=== PATIENT | female | born 1975 | race African-American/Black ===

== ENCOUNTER 2023-10-10 15:50 | Inpatient (IN) | payer MEDICAID ==
[~2023-10-10] VITALS: Ht 157.5 cm; Wt 61.7 kg
[2023-10-10 16:39] LABS: BASOPHILS % 1.7 % (0.0-2.0); EOSINOPHILS % 1.3 % (0.0-5.0); HEMATOCRIT. 22.7 % (36.0-48.0); LYMPHOCYTES % 40.9 % (20.0-50.0); MEAN CORPUSCULAR HEMOGLOBIN 17.7 pg (28.0-32.0); MEAN CORPUSCULAR HGB CONC 29.3 g/dL (31.0-37.0); MEAN CORPUSCULAR VOLUME 60.5 fL (81.0-99.0); MEAN PLATELET VOLUME 8.2 fl (7.4-10.4); MONOCYTES % 8.8 % (2.0-8.0); NEUTROPHILS % 47.3 % (40.0-76.0); PLATELET 310 x1000/uL (130-400); RED BLOOD CELL COUNT 3.75 mill/uL (4.2-5.4); RED CELL DISTRIBUTION WIDTH 20.6 % (11.6-14.6); WHITE BLOOD COUNT 4.7 x1000/uL (4.5-11.0)
[2023-10-10 16:42] LABS: CARBON DIOXIDE 23 mEq/L (21-32); CHLORIDE 108 mEq/L (98-107); POTASSIUM 3.3 mEq/L (3.5-5.1); SODIUM 141 mEq/L (136-145)
[2023-10-10 16:43] LABS: CALCIUM 8.7 mg/dL (8.7-10.4)
[2023-10-10 16:48] LABS: CREATININE 0.7 mg/dL (0.6-1.0); ETHANOL BLOOD 100 mg/dL (<10); GLUCOSE 82 mg/dL (70-105); UREA NITROGEN BLOOD 9 mg/dL (9-23)
[2023-10-10 16:52] LABS: ADD RBC MORPHOLOGY YES; DIFFERENTIAL COMMENT 1; HEMOGLOBIN. 6.6 g/dL (12.0-16.0)
[2023-10-10 16:54] LABS: CARBAMAZEPINE < 0.4 ug/mL (4-12); PHENOBARBITAL < 3.0 ug/mL (15.0-40.0); PHENYTOIN < 2.0 ug/mL (10-20)
[2023-10-10 16:55] LABS: VALPROIC ACID < 3.0 ug/mL (50-100)
[2023-10-10 17:35] LABS: HYPOCHROMASIA 2+; MICROCYTOSIS 3+; PLATELET ESTIMATE NORMAL; TARGET CELLS 1+
[2023-10-10] MEDS: LORAZEPAM 2MG/ML INJ IV ONE (20:20)
[2023-10-10] MEDS ORDERED: LORAZEPAM 2MG/ML INJ IV PRN ×2 (20:30→22:00)
[2023-10-10] MEDS ORDERED: GUAIFENESIN 200MG/10ML SUGAR FREE UDC PO PRN (20:30)
[2023-10-10] MEDS ORDERED: IPRATROPIUM/ALBUTEROL 0.5-3(2.5)MG/3ML NEB HHN PRN (20:30)
[2023-10-10] MEDS ORDERED: ACETAMINOPHEN 325MG TABLET PO PRN (20:30)
[2023-10-10] MEDS ORDERED: ONDANSETRON HCL 4MG/2ML INJ IV PRN (20:30)
[2023-10-10] MEDS ORDERED: DOCUSATE SODIUM 100MG CAPSULE PO PRN (20:30)
[2023-10-10] MEDS ORDERED: CLONIDINE 0.1MG TABLET PO PRN (20:30)
[2023-10-10] MEDS ORDERED: LEVETIRACETAM 500MG PREMIX 100 ML IV SCH (21:00)
[2023-10-10 21:30] VITALS: BP 125/75; PULSE 105; RESP 19; TEMP 97.5
[2023-10-10] MEDS: LEVETIRACETAM 500MG TABLET PO SCH (22:28)
[2023-10-10] MEDS: CHLORDIAZEPOXIDE 25MG CAPSULE PO SCH (22:28)
[2023-10-10] MEDS: POTASSIUM CHLORIDE 20MEQ/PACKET PO NR (22:28)
[2023-10-10 22:35] LABS: CLARITY URINE TURBID (CLEAR); COLOR URINE RED (YELLOW); GLUCOSE URINE NEGATIVE (NEGATIVE); KETONES URINE NEGATIVE (NEGATIVE); LEUKOCYTE ESTERASE URINE 2+ (NEGATIVE); NITRITE URINE POSITIVE (NEGATIVE); OCCULT BLOOD URINE 2+ (NEGATIVE); PROTEIN URINE 2+ (NEGATIVE); SPECIFIC GRAVITY URINE 1.029 (1.005-1.030)
[2023-10-10 22:42] LABS: *AMPHETAMINES SCREEN URINE NEGATIVE (NEGATIVE); *BARBITURATES SCREEN URINE NEGATIVE (NEGATIVE); *BENZODIAZEPINES SCREEN URINE PRESUMPTIVE POSITIVE (NEGATIVE); *COCAINE SCREEN URINE PRESUMPTIVE POSITIVE (NEGATIVE); CANNABINOID URINE SCREEN PRESUMPTIVE POSITIVE (NEGATIVE); ECSTASY MDMA SCREEN URINE NEGATIVE (NEGATIVE); METHADONE URINE SCREEN NEGATIVE (NEGATIVE); OPIATES URINE SCREEN NEGATIVE (NEGATIVE); PHENCYCLIDINE URINE SCREEN NEGATIVE (NEGATIVE)
[2023-10-10 22:48] LABS: BACTERIA URINE 2+; RBC URINE TNTC /hpf (0-2); SQUAMOUS EPITHELIAL CELL URINE 1+ /lpf (RARE/1+)
[2023-10-11 04:00] VITALS: BP 112/65; PULSE 75; RESP 19; TEMP 97.5
[2023-10-11 08:00] VITALS: BP 115/77; PULSE 81; RESP 18; TEMP 97.4
[2023-10-11] MEDS: CEFTRIAXONE 1GM/50ML 50 ML IV SCH (09:23)
[2023-10-11 09:40] LABS: CHLORIDE 108 mEq/L (98-107); POTASSIUM 3.6 mEq/L (3.5-5.1); SODIUM 139 mEq/L (136-145)
[2023-10-11 09:41] LABS: CALCIUM 8.7 mg/dL (8.7-10.4); CARBON DIOXIDE 24 mEq/L (21-32)
[2023-10-11 09:46] LABS: BASOPHILS % 1.3 % (0.0-2.0); CREATININE 0.6 mg/dL (0.6-1.0); EOSINOPHILS % 1.8 % (0.0-5.0); GLUCOSE 103 mg/dL (70-105); HEMATOCRIT. 24.2 % (36.0-48.0); HEMOGLOBIN. 7.1 g/dL (12.0-16.0); LYMPHOCYTES % 31.8 % (20.0-50.0); MEAN CORPUSCULAR HEMOGLOBIN 17.8 pg (28.0-32.0); MEAN CORPUSCULAR HGB CONC 29.5 g/dL (31.0-37.0); MEAN CORPUSCULAR VOLUME 60.2 fL (81.0-99.0); MEAN PLATELET VOLUME 8.6 fl (7.4-10.4); MONOCYTES % 8.4 % (2.0-8.0); NEUTROPHILS % 56.7 % (40.0-76.0); PLATELET 344 x1000/uL (130-400); RED BLOOD CELL COUNT 4.02 mill/uL (4.2-5.4); RED CELL DISTRIBUTION WIDTH 21.1 % (11.6-14.6); TRIGLYCERIDE 79 mg/dL (0-150); UREA NITROGEN BLOOD 8 mg/dL (9-23)
[2023-10-11 09:47] LABS: LDL CHOLESTEROL 67 mg/dL (5-100)
[2023-10-11 09:48] LABS: CHOLESTEROL 158 mg/dL (<200); CREATINE KINASE 193 IU/L (34-145); HDL CHOLESTEROL 80 mg/dL (>65); T4 FREE 0.82 ng/dL (0.89-1.76)
[2023-10-11 09:49] LABS: DIFFERENTIAL COMMENT 1
[2023-10-11 09:50] LABS: ADD RBC MORPHOLOGY NO; THYROID STIMULATING HORMONE 0.43 uIU/mL (0.55-4.78)
[2023-10-11 12:00] VITALS: BP 124/74; PULSE 71; RESP 20; TEMP 98.8
[2023-10-11] MEDS: IRON SUCROSE COMPLEX 100 MG/5 ML ML IV SCH (13:20)
[2023-10-11 16:00] VITALS: BP 104/68; PULSE 76; RESP 20; TEMP 98.5
[2023-10-11 17:48] LABS: HEMATOCRIT 27.2 % (36.0-48.0); HEMOGLOBIN 7.8 g/dL (12.0-16.0); MEAN CORPUSCULAR HEMOGLOBIN 17.5 pg (28.0-32.0); MEAN CORPUSCULAR HGB CONC 28.7 g/dL (31.0-37.0); MEAN CORPUSCULAR VOLUME 60.9 fL (81.0-99.0); PLATELET 425 x1000/uL (130-400); RED BLOOD CELL COUNT 4.47 mill/uL (4.2-5.4); RED CELL DISTRIBUTION WIDTH 21.2 % (11.6-14.6); WHITE BLOOD COUNT 5.5 x1000/uL (4.5-11.0)
[2023-10-11 17:50] LABS: INR 0.9; PROTHROMBIN TIME 10.3 sec (9.6-11.0)
[2023-10-11 17:52] LABS: TROPONIN I HIGH SENSITIVITY 14 ng/L (3.0-34)
[2023-10-11 17:53] LABS: AMMONIA 93 uMol/L (<32); CREATINE KINASE 180 IU/L (34-145)
[2023-10-11 20:00] VITALS: BP 126/63; PULSE 76; RESP 19; TEMP 97.5
[2023-10-12] VITALS: BP 119/71; PULSE 92; RESP 19; TEMP 97.1
[2023-10-12 04:00] VITALS: BP 118/66; PULSE 89; RESP 19; TEMP 97.5
[2023-10-12 08:00] VITALS: BP 108/73; PULSE 80; RESP 20; TEMP 97.8
[2023-10-12 10:23] LABS: HEMATOCRIT 25.1 % (36.0-48.0); HEMOGLOBIN 7.3 g/dL (12.0-16.0); MEAN CORPUSCULAR HEMOGLOBIN 17.7 pg (28.0-32.0); MEAN CORPUSCULAR HGB CONC 29.3 g/dL (31.0-37.0); MEAN CORPUSCULAR VOLUME 60.4 fL (81.0-99.0); PLATELET 415 x1000/uL (130-400); RED BLOOD CELL COUNT 4.15 mill/uL (4.2-5.4); RED CELL DISTRIBUTION WIDTH 21.3 % (11.6-14.6); WHITE BLOOD COUNT 5.9 x1000/uL (4.5-11.0)
[2023-10-12 10:26] LABS: CALCIUM 8.9 mg/dL (8.7-10.4); CARBON DIOXIDE 24 mEq/L (21-32); CHLORIDE 108 mEq/L (98-107); POTASSIUM 4.1 mEq/L (3.5-5.1); SODIUM 138 mEq/L (136-145)
[2023-10-12 10:29] LABS: CREATININE 0.7 mg/dL (0.6-1.0); GLUCOSE 92 mg/dL (70-105); UREA NITROGEN BLOOD 8 mg/dL (9-23)
[2023-10-12 11:18] VITALS: BP 108/73; PULSE 80; TEMP 97.8; O2SAT 98
[2023-10-12 12:00] VITALS: BP 102/50; PULSE 83; RESP 20; TEMP 98.9
== END 2023-10-12 12:30 | disposition home or self-care (01) | DRG 812 ==
LOC: ER 15:50 → EDBEDREQ 19:37 → EDBEDREQTM 19:37 → EDBD 21:23 → 7WST 21:23
PROVIDERS: ADMIT Internal Medicine; ATTEND Internal Medicine
DX: T50.911A Poisoning by multiple unspecified drugs, medicaments and biological substances, accidental (unintentional), initial encounter (principal); G92.8 Other toxic encephalopathy; E78.5 Hyperlipidemia, unspecified; F10.129 Alcohol abuse with intoxication, unspecified; D50.9 Iron deficiency anemia, unspecified; E87.6 Hypokalemia; T40.5X1A Poisoning by cocaine, accidental (unintentional), initial encounter; R56.9 Unspecified convulsions; F14.90 Cocaine use, unspecified, uncomplicated; N39.0 Urinary tract infection, site not specified; Y90.5 Blood alcohol level of 100-119 mg/100 ml; Z59.01 Sheltered homelessness; Z79.899 Other long term (current) drug therapy; Z88.1 Allergy status to other antibiotic agents
CPT/HCPCS: 36415; 80048; 80061; 80156; 80165; 80184; 80185; 80305; 80320; 81003; 82140; 82550; 83735; 84439; 84443; 84484; 85025; 85027; 86850; 86870; 86900; 99291; C1893; J0696; J2060; G0480

== ENCOUNTER 2024-04-16 12:38 | Inpatient (IN) | payer MEDICAID ==
[~2024-04-16] VITALS: Ht 165.1 cm; Wt 68.0 kg
[2024-04-16 14:10] LABS: BASOPHILS % 0.5 % (0.0-2.0); EOSINOPHILS % 0.4 % (0.0-5.0); HEMATOCRIT. 25.9 % (36.0-48.0); HEMOGLOBIN. 7.5 g/dL (12.0-16.0); LYMPHOCYTES % 10.2 % (20.0-50.0); MEAN CORPUSCULAR HEMOGLOBIN 18.2 pg (28.0-32.0); MEAN CORPUSCULAR VOLUME 62.8 fL (81.0-99.0); MEAN PLATELET VOLUME 6.6 fl (7.4-10.4); MONOCYTES % 8.9 % (2.0-8.0); PLATELET 457 x1000/uL (130-400); RED BLOOD CELL COUNT 4.12 mill/uL (4.2-5.4); RED CELL DISTRIBUTION WIDTH 22.8 % (11.6-14.6); WHITE BLOOD COUNT 8.9 x1000/uL (4.5-11.0)
[2024-04-16 14:19] LABS: CHLORIDE 110 mEq/L (98-107); POTASSIUM 4.1 mEq/L (3.5-5.1); SODIUM 142 mEq/L (136-145)
[2024-04-16 14:20] LABS: CALCIUM 9.1 mg/dL (8.7-10.4); CARBON DIOXIDE 22 mEq/L (21-32)
[2024-04-16 14:25] LABS: CREATININE 0.8 mg/dL (0.6-1.0); GLUCOSE 82 mg/dL (70-105); UREA NITROGEN BLOOD 10 mg/dL (9-23)
[2024-04-16 14:28] LABS: TROPONIN I HIGH SENSITIVITY 29 ng/L (3.0-34)
[2024-04-16 14:30] LABS: ADD RBC MORPHOLOGY YES; DIFFERENTIAL COMMENT 1
[2024-04-16 15:09] LABS: HYPOCHROMASIA 2+; MICROCYTOSIS 3+; PLATELET ESTIMATE NORMAL
[2024-04-16 15:10] LABS: TARGET CELLS 1+
[2024-04-16] MEDS ORDERED: CLONIDINE 0.1MG TABLET PO PRN (20:30)
[2024-04-16] MEDS: THIAMINE HCL 100MG TABLET PO SCH (20:30)
[2024-04-16] MEDS ORDERED: ACETAMINOPHEN 325MG TABLET PO PRN (20:30)
[2024-04-16] MEDS ORDERED: IPRATROPIUM/ALBUTEROL 0.5-3(2.5)MG/3ML NEB NEB PRN (20:30)
[2024-04-16] MEDS ORDERED: NALOXONE HCL 0.4MG/ML VIAL IV PRN (20:30)
[2024-04-16] MEDS ORDERED: DOCUSATE SODIUM 100MG CAPSULE PO PRN (20:30)
[2024-04-16] MEDS ORDERED: ONDANSETRON HCL 4MG/2ML INJ IV PRN (20:30)
[2024-04-16] MEDS ORDERED: HYDROCODONE/ACETAMINOPHEN 5/325MG TABLET PO PRN (20:30)
[2024-04-16] MEDS: SODIUM CHLORIDE 0.9% 1,000 ML IV SCH (20:54)
[2024-04-16] MEDS: PANTOPRAZOLE SODIUM 40 MG/VIAL IV SCH (20:57)
[2024-04-16] MEDS: ENOXAPARIN 40MG/0.4ML SYR SUBCUT SCH (20:59)
[2024-04-16] MEDS ORDERED: ZOLPIDEM TARTRATE 5MG TABLET PO PRN (21:00)
[2024-04-17 00:49] VITALS: BP 103/61; PULSE 85; RESP 19; TEMP 37.53
[2024-04-17 04:00] VITALS: BP 108/63; PULSE 81; RESP 18; TEMP 37.11408; O2SAT 100
[2024-04-17 07:52] LABS: CARBON DIOXIDE 22 mEq/L (21-32); CHLORIDE 108 mEq/L (98-107); SODIUM 138 mEq/L (136-145)
[2024-04-17 07:55] LABS: CREATINE KINASE MB FRACTION 1.6 ng/mL (0.5-3.6)
[2024-04-17 07:57] LABS: CREATININE 0.8 mg/dL (0.6-1.0); GLUCOSE 91 mg/dL (70-105)
[2024-04-17 07:58] LABS: UREA NITROGEN BLOOD 10 mg/dL (9-23)
[2024-04-17 08:00] VITALS: BP 127/63; PULSE 90; RESP 19; TEMP 36.72516; O2SAT 95
[2024-04-17 08:00] LABS: CREATINE KINASE 88 IU/L (34-145)
[2024-04-17 08:46] LABS: TROPONIN I HIGH SENSITIVITY 42 ng/L (3.0-34)
[2024-04-17 09:07] LABS: BASOPHILS % 1.1 % (0.0-2.0); EOSINOPHILS % 1.6 % (0.0-5.0); HEMATOCRIT. 24.9 % (36.0-48.0); HEMOGLOBIN. 7.3 g/dL (12.0-16.0); MEAN CORPUSCULAR HGB CONC 29.3 g/dL (31.0-37.0); MEAN CORPUSCULAR VOLUME 61.5 fL (81.0-99.0); MEAN PLATELET VOLUME 7.1 fl (7.4-10.4); MONOCYTES % 10.5 % (2.0-8.0); NEUTROPHILS % 54.8 % (40.0-76.0); PLATELET 408 x1000/uL (130-400); RED BLOOD CELL COUNT 4.05 mill/uL (4.2-5.4); RED CELL DISTRIBUTION WIDTH 22.9 % (11.6-14.6); WHITE BLOOD COUNT 5.8 x1000/uL (4.5-11.0)
[2024-04-17 09:14] LABS: DIFFERENTIAL COMMENT 1
[2024-04-17 18:19] LABS: CREATINE KINASE MB FRACTION 1.2 ng/mL (0.5-3.6)
[2024-04-17 18:56] LABS: *AMPHETAMINES SCREEN URINE NEGATIVE (NEGATIVE); *BARBITURATES SCREEN URINE NEGATIVE (NEGATIVE); *BENZODIAZEPINES SCREEN URINE NEGATIVE (NEGATIVE); *COCAINE SCREEN URINE PRESUMPTIVE POSITIVE (NEGATIVE); CANNABINOID URINE SCREEN NEGATIVE (NEGATIVE); ECSTASY MDMA SCREEN URINE NEGATIVE (NEGATIVE); METHADONE URINE SCREEN NEGATIVE (NEGATIVE); OPIATES URINE SCREEN NEGATIVE (NEGATIVE); PHENCYCLIDINE URINE SCREEN NEGATIVE (NEGATIVE)
[2024-04-17 20:00] VITALS: BP 119/60; PULSE 86; RESP 19; TEMP 36.83628; O2SAT 97
[2024-04-18] VITALS: BP 103/66; PULSE 85; RESP 18; TEMP 36.55848; O2SAT 96
[2024-04-18 04:00] VITALS: BP 107/64; PULSE 106; RESP 19; TEMP 36.22512; O2SAT 99
[2024-04-18 08:00] VITALS: BP 108/72; PULSE 68; RESP 18; TEMP 36.44736; O2SAT 100
[2024-04-18 12:00] VITALS: BP 109/58; PULSE 72; RESP 18; TEMP 36.9474; TEMP 36.94740; O2SAT 99
[2024-04-18] MEDS ORDERED: THIA100T72 PO (14:34)
[2024-04-18 15:06] VITALS: BP 109/58; PULSE 78; TEMP 97.9; O2SAT 97
== END 2024-04-18 15:40 | disposition home or self-care (01) | DRG 52 ==
LOC: ER 12:38 → 8WST 19:19
PROVIDERS: ADMIT Internal Medicine; ATTEND Internal Medicine
DX: G92.8 Other toxic encephalopathy (principal); F17.210 Nicotine dependence, cigarettes, uncomplicated; G40.909 Epilepsy, unspecified, not intractable, without status epilepticus; J45.909 Unspecified asthma, uncomplicated; Z91.148 Patient's other noncompliance with medication regimen for other reason; Z88.1 Allergy status to other antibiotic agents; Z59.00 Homelessness unspecified
CPT/HCPCS: 36415; 71045; 80048; 80305; 82550; 82553; 83880; 84484; 85025; 93005; 93970; 99285; J1650; J2470